=== PATIENT | female | born 1970 | race Caucasian/White ===

== ENCOUNTER 2021-08-27 06:25 | Day surgery (SDC) | payer OTHER, SELFPAY ==
--- NOTE | 2021-08-26 08:57 | HO.ANESPROP2 ---
Documented by User: Astrid Ng NP 08/26/21 08:58 HPI - Anesthesia Eval Consult details Narrative: 51yo F for Colonoscopy [facility] Past Medical History Medical History Anxiety COVID-19 vaccine series completed History of postoperative nausea and vomiting Surgical History Surgical History H/O colonoscopy Hx of cosmetic surgery Social History Social History Patient Tobacco Use Status: Former Tobacco user Quit Date: age 18's Tobacco use type: Cigarette Use of substances other than those prescribed or required for medical reasons: No Are you DNR?: No Advance Directives: No Advance Directives Information Provided: Yes (brochure mailed) Advance Directives on File: No Recently lost weight without trying: No Eating poorly because of decreased appetite: No Nutrition Risks: No Nutritional Risk Patient : No FDLMP: N/A Meds Allergies Allergy/AdvReac Type Severity Reaction Status Date / Time nitrofurantoin Allergy Intermediate Hives/facial Verified 08/21/21 13:58 [From Macrobid] swelling Home Medications Medication Instructions Recorded Confirmed Last Taken Type estradiol-norethindrone acet 1 1 tab PO DAILY 08/21/21 08/21/21 Unknown History mg-0.5 mg tablet (Mimvey) multivitamin 1 tab PO DAILY 08/21/21 08/21/21 Unknown History sertraline 100 mg tablet 1.5 tab PO DAILY 08/21/21 08/21/21 Unknown History Exam Exam Date and Time: August 26, 2021 0857 Height,Weight and Vital Signs: Height 5 ft 5 in Weight 54.431 kg Assessment and Plan Assessment Anesthesia Assessment: Chart Reviewed Documented by User: Hung Ruff MD 08/27/21 08:00 [facility] Past Medical History Medical History Anxiety COVID-19 vaccine series completed History of postoperative nausea and vomiting Family History Family history of problems with anesthesia: No Surgical History Surgical History H/O colonoscopy Hx of cosmetic surgery History of Problems with Anesthesia: No Social History Social History Patient Tobacco Use Status: Former Tobacco user Quit Date: age 18's Tobacco use type: Cigarette Use of substances other than those prescribed or required for medical reasons: No Are you DNR?: No Advance Directives: No Advance Directives Information Provided: Yes (brochure mailed) Advance Directives on File: No Recently lost weight without trying: No Eating poorly because of decreased appetite: No Nutrition Risks: No Nutritional Risk Patient : No FDLMP: N/A Meds Allergies Allergy/AdvReac Type Severity Reaction Status Date / Time nitrofurantoin Allergy Intermediate Hives/facial Verified 08/21/21 13:58 [From Macrobid] swelling Home Medications Medication Instructions Recorded Confirmed Last Taken Type estradiol-norethindrone acet 1 1 tab PO DAILY 08/21/21 08/21/21 Unknown History mg-0.5 mg tablet (Mimvey) multivitamin 1 tab PO DAILY 08/21/21 08/21/21 Unknown History sertraline 100 mg tablet 1.5 tab PO DAILY 08/21/21 08/21/21 Unknown History Exam Airway Mallampati Class: II TM Dist: >3cm Neck ROM: Full Assessment and Plan Assessment Anesthesia Assessment: Anesthesia Plan Discussed Final Anesthetic Review Family History of Problems with Anesthesia: No History of Problems with Anesthesia: No NPO: Yes ASA Class: II Final Preanesthetic Review: No Changes in Pt Med Stat, Meds/Allgs Chart Reviewed, Consent Obtained/Reviewed and Anes Risks/Benef Reviewed Patient Risk: Low Procedure Risk: Low Anesthetic Plan Anesthetic Plan: MAC: Disposition: Standard PACU
[2021-08-27 06:48] VITALS: BP 98/61; PULSE 63; RESP 16; TEMP 36.7; O2SAT 98
[2021-08-27] MEDS: Lactated Ringers 1,000 ML 100 ML IVCONT (06:52)
[2021-08-27 08:28] VITALS: BP 106/66; PULSE 69; RESP 16; TEMP 36.1; O2SAT 99
--- NOTE | 2021-08-27 08:31 | P.BOP_ITS ---
Brief Operative Note Date of Service: 08/27/21 Pre-op diagnosis: Screening Post-op diagnosis: other (Diverticulosis) Procedure: Colonoscopy to the cecum and TI Surgeon: Rei Langley Anesthesia: MAC Was an Opinion Polls Survey Worker used for this Procedure?: No Estimated blood loss (mL): 0 Pathology: none sent Condition: stable Disposition: PACU
[2021-08-27 08:43] VITALS: BP 111/64; PULSE 53; RESP 16; TEMP 36.1; O2SAT 100
--- NOTE | 2021-08-27 11:03 | OP_ITS ---
SURGEON: Rei Langley MD INDICATIONS: The patient presents for evaluation of colorectal cancer screening. Full consent has been obtained from her for this, including risks of bleeding and perforation. PREOPERATIVE DIAGNOSIS: Colorectal cancer screening and family history of colon cancer. POSTOPERATIVE DIAGNOSIS: PROCEDURE PERFORMED: Colonoscopy to the cecum and terminal ileum. ESTIMATED BLOOD LOSS: COMPLICATIONS: ANESTHESIA: Medication used, monitored anesthesia care. ASSISTANTS: SPECIMENS: POSTOPERATIVE DIAGNOSES: Colorectal cancer screening and family history of colon cancer, mild sigmoid diverticulosis, internal hemorrhoids. DESCRIPTION OF PROCEDURE: The patient was placed in the left lateral decubitus position the digital rectal exam revealed no abnormalities. The Olympus video pediatric colonoscope was entered into the rectum and advanced easily to the cecum. Once in the cecum, I did identify normal-appearing cecal pouch with appendiceal orifice and a normal-appearing ileocecal valve. The terminal ileum was cannulated and appeared normal. The scope was withdrawn back in the colon. The entire cecum and ileocecal valve appeared normal. The scope was slowly withdrawn assessing all mucosal surfaces carefully. Preparation was excellent. I did not visualize any sign of polyps, colitis, nor angiodysplasia. There was a mild amount of sigmoid diverticulosis. In the rectum, the scope was retroflexed visualizing internal hemorrhoids, but no other pathology. The rectal mucosa appeared normal. The scope was straightened and withdrawn from the patient. She tolerated the procedure well and was returned to the recovery area in stable condition. IMPRESSION: 1. Mild sigmoid diverticulosis. 2. Internal hemorrhoids. PLAN: I would recommend a repeat colonoscopy in 5 years for further screening. She will otherwise see me on a p.r.n. basis. Rei Langley MD RMW/MODL / [id number]
== END 2021-08-27 09:11 | disposition home or self-care (01) ==
PROVIDERS: Visit Provider Internal Medicine
PROC: 0DJD8ZZ Inspection of Lower Intestinal Tract, Via Natural or Artificial Opening Endoscopic (ICD-10-PCS; CPT 45378; principal; 2021-08-27 07:30)
DX: Z12.11 Encounter for screening for malignant neoplasm of colon (principal); Z80.0 Family history of malignant neoplasm of digestive organs; K57.30 Diverticulosis of large intestine without perforation or abscess without bleeding; K64.8 Other hemorrhoids; F41.1 Generalized anxiety disorder; Z79.899 Other long term (current) drug therapy; Z88.8 Allergy status to other drugs, medicaments and biological substances; Z87.891 Personal history of nicotine dependence
CPT/HCPCS: 45378